=== PATIENT | female | born 2000 | race Caucasian/White ===

== ENCOUNTER → 2021-06-01 | Outpatient (CLI) | payer BC | LOC: HEART 5 05-14 15:00 | DX: R00.2 Palpitations (principal) ==

== ENCOUNTER → 2021-08-19 | Outpatient (CLI) | payer BC | LOC: KOH-I 12:47 | DX: J01.90 Acute sinusitis, unspecified (principal); R51.9 Headache, unspecified; R93.89 Abnormal findings on diagnostic imaging of other specified body structures | CPT/HCPCS: 70486 ==